=== PATIENT | female | born 1970 | race Caucasian/White ===

== ENCOUNTER 2025-04-25 22:10 | Observation (INO) | payer BC, SELFPAY ==
--- NOTE | ~2025-04-25 | CT_ITS ---
CT of the Abdomen and Pelvis: Indication: Abdominal pain Technique: 2.5 mm axial scans were obtained through the abdomen and pelvis following intravenous adm inistration of 100 cc of Omnipaque 350. Dose reduction technique was used on this scan by utilizing a utomated exposure control and iterative reconstruction technique. The dose-length product (DLP) was 7 31.30 mGy-cm. Findings: Scans through the lung bases are unremarkable. The liver, spleen, pancreas, gallbladder, adrenals and kidneys are within normal limits. No evidence of aortic aneurysm. No lymphadenopathy. Appendix is mildly dilated to 8-9 mm with mild periappendiceal stranding, compatible with early acute appendicitis. No abscess or free air. No bowel obstruction. Images through the pelvis were performed. Urinary bladder unremarkable. No pelvic mass seen. No ascit es. Impression: Findings compatible with early acute appendicitis, as detailed above. No abscess or free air. Reviewed, dictated and finalized at location . Impression: Findings compatible with early acute appendicitis, as detailed above. No absces s or free air.
[2025-04-25 22:26] VITALS: BP 145/77; PULSE 71; RESP 16; TEMP 36.7; O2SAT 99
[2025-04-26] VITALS (19 sets, daily range): BP systolic 103–131; BP diastolic 53–79; PULSE 59–97; RESP 14–22; TEMP 36.1–36.9; O2SAT 92–100; BMI 30.4
[2025-04-26 00:38] LABS: Add Urine Microscopic? YES; Appearance Urine Clear (Clear); Bacteria Urine None Seen /hpf; Bilirubin Urine Negative (Negative); Blood Urine Negative (Negative); Color Urine Yellow (Yellow); Glucose Urine UA Negative (Negative); Ketones Urine Negative (Negative); Leukocyte Esterase Ur Trace LEU/UL (Negative); Nitrate Urine Negative (Negative); Protein Urine Negative (Negative); RBC Urine 0-2 /hpf (0-2); Specific Grav Ur 1.022 (1.001-1.035); Squamous Epithelial Cell Urine None Seen /hpf (Few); Urobilinogen Urine 0.2 mg/dL (<2.0); WBC Urine 0-5 /hpf (0-3); pH Urine 5.5 (5.0-9.0)
--- NOTE | 2025-04-26 00:50 | ED_ITS ---
HPI - Abdominal Pain General Chief Complaint: Abdominal Pain <JANI Hi Last Filed: 04/26/25 03:02> Stated Complaint: vomiting, abd pain <JANI Hi Last Filed: 04/26/25 03:02> Time Seen by Provider: 04/26/25 00:18 <JANI Hi Last Filed: 04/26/25 03:02> History of Present Illness HPI narrative: 54-year-old female with reported history of hypertension presents to the emergency department for abdominal pain that started today at 2:00 p.m. with associated nausea and vomiting a few hours later. Patient states the pain is diffusely throughout her mid abdomen and describes it as a pressure sensation. She denies fever, chest pain or shortness of breath, diarrhea, dysuria or hematuria. Her last bowel movement was earlier today and normal. No prior abdominal surgeries. She is also reporting a lump to her right labia that she noticed 2-3 days ago. States she has been working out in her garage and is seeing several spiders and is concerned it may be a spider bite. Denies drainage. She is uncertain of her last tetanus vaccine. <JANI Hi Last Filed: 04/26/25 03:02> Related Data Allergies/Adverse Reactions: Allergies Allergy/AdvReac Type Severity Reaction Status Date / Time pcn Allergy Intermediate Hives Uncoded 04/25/25 22:28 <JANI Hi Last Filed: 04/26/25 03:02> Review of Systems 2 Review of Systems: All systems reviewed & are unremarkable except as noted in HPI and below <JANI Hi Last Filed: 04/26/25 03:02> Exam 2 Narrative: GENERAL: Well-appearing, well-nourished, and in no acute distress. HEAD: Normocephalic, atraumatic. EYES: EOMI. ENT: Nares clear, no rhinorrhea or epistaxis. Mucous membranes moist. NECK: Supple. CHEST: Clear to auscultation. No respiratory distress. HEART: Regular rate and rhythm. No murmur heard. Normal peripheral pulses. ABDOMEN: Quiet bowel sounds. Abdomen soft with tenderness to the right lower quadrant. No rebound or rigidity. No CVA tenderness. Approximately 3 cm area of induration to the right labia majora with overlying blanching erythema and warmth, tender to palpation, no areas of fluctuance, no spontaneous drainage. No crepitus EXTREMITIES: Normal range of motion. No edema. SKIN: Warm, dry, no rash. NEURO: No focal deficits. Alert and oriented x3 <Alaina Aquino PA-C - Last Filed: 04/26/25 03:02> Course Vital Signs Vital signs: Vital Signs Temperature 98.1 F 04/25/25 22:26 Pulse Rate 71 04/25/25 22:26 Respiratory Rate 16 04/25/25 22:26 Blood Pressure 145/77 H 04/25/25 22:26 Pulse Oximetry 99 04/25/25 22:26 Oxygen Delivery Room Air 04/25/25 22:26 Temperature 98.1 F 04/25/25 22:26 Pulse Rate 85 04/26/25 04:59 Respiratory Rate 15 04/26/25 04:59 Blood Pressure 109/72 04/26/25 04:59 Pulse Oximetry 99 04/26/25 04:59 Oxygen Delivery Room Air 04/25/25 22:26 <Alaina Aquino PA-C - Last Filed: 04/26/25 03:02> Vital Signs Temperature 98.1 F 04/25/25 22:26 Pulse Rate 71 04/25/25 22:26 Respiratory Rate 16 04/25/25 22:26 Blood Pressure 145/77 H 04/25/25 22:26 Pulse Oximetry 99 04/25/25 22:26 Oxygen Delivery Room Air 04/25/25 22:26 Temperature 98.1 F 04/25/25 22:26 Pulse Rate 85 04/26/25 04:59 Respiratory Rate 15 04/26/25 04:59 Blood Pressure 109/72 04/26/25 04:59 Pulse Oximetry 99 04/26/25 04:59 Oxygen Delivery Room Air 04/25/25 22:26 <Twin Dao MD - Last Filed: 04/26/25 06:18> MDM - Abdominal Pain MDM Narrative Medical decision making narrative: 54-year-old female with history of hypertension presents to the emergency department for abdominal pain, nausea vomiting that started this morning. Also reporting a lump to her right labia for the past 2-3 days she believes is a spider bite. Vital signs are stable. Patient is afebrile and nontoxic appearing. Exam is significant for tenderness to the right lower quadrant on palpation. No guarding, rebound or rigidity. Will obtain lab work, UA, CT abdomen pelvis and provide IV fluids, pain control and antiemetics. Patient's right labia has approximately 3 cm area of blanching erythema and warmth, tender over palpation with induration. There is no fluctuance. Bedside ultrasound shows no drainable abscess or fluid collection. Will see if the CT abdomen and pelvis shows any evidence of abscess. Plan to start the patient on antibiotics for cellulitis. Her Tdap was updated in the event that this was infected spider bite. Her lab work shows leukocytosis of 18. Her chemistries show hyperglycemia of 143 with normal bicarb and anion gap, otherwise unremarkable. UA with trace leuk esterase, no white blood cells or red blood cells, no UTI. Lipase is within normal limits. Patient was re-evaluated states her pain and nausea improved after morphine and Zofran, however still having mild persistent pain and nausea. Will provide Dilaudid and Reglan. Pending CT abdomen pelvis at time of sign-out to Dr. Dao. <Alaina Aquino PA-C - Last Filed: 04/26/25 03:02> 54-year-old female with history of hypertension presents to the emergency department for abdominal pain, nausea vomiting that started this morning. Also reporting a lump to her right labia for the past 2-3 days she believes is a spider bite. Vital signs are stable. Patient is afebrile and nontoxic appearing. Exam is significant for tenderness to the right lower quadrant on palpation. No guarding, rebound or rigidity. Will obtain lab work, UA, CT abdomen pelvis and provide IV fluids, pain control and antiemetics. Patient's right labia has approximately 3 cm area of blanching erythema and warmth, tender over palpation with induration. There is no fluctuance. Bedside ultrasound shows no drainable abscess or fluid collection. Will see if the CT abdomen and pelvis shows any evidence of abscess. Plan to start the patient on antibiotics for cellulitis. Her Tdap was updated in the event that this was infected spider bite. Her lab work shows leukocytosis of 18. Her chemistries show hyperglycemia of 143 with normal bicarb and anion gap, otherwise unremarkable. UA with trace leuk esterase, no white blood cells or red blood cells, no UTI. Lipase is within normal limits. Patient was re-evaluated states her pain and nausea improved after morphine and Zofran, however still having mild persistent pain and nausea. Will provide Dilaudid and Reglan. Pending CT abdomen pelvis at time of sign-out to Dr. Dao. -- CT scan did show acute appendicitis with no evidence of abscess or perforation. Patient is currently afebrile but does have a leukocytosis of 18. Patient had initially been started on Rocephin for cellulitis but was switched to Zosyn. Patient is NPO since approximately 5:00 p.m. last night. Patient does take medications for hypertension. Patient denies any cardiac history is not on any blood thinners. Patient reports he did have prior abdominal surgery to have some ovarian cysts removed. On re-examination patient does have right lower quadrant tenderness to palpation. <Twin Dao MD - Last Filed: 04/26/25 06:18> Differential Diagnosis Differential diagnosis: Likely abdominal pain, acute appendicitis and other <Twin Dao MD - Last Filed: 04/26/25 06:18> Lab Data Result diagrams: 04/26/25 01:07 04/26/25 01:07 <Alaina Aquino PA-C - Last Filed: 04/26/25 03:02> Labs: Lab Results 04/26/25 04/26/25 04/26/25 Range/Units 00:23 00:28 01:07 WBC 18.0 H (4.5-10.0) K/mm3 RBC 4.85 (4.2-5.4) M/mm3 Hgb 13.2 (12.0-15.0) g/dL Hct 41.0 (37.0-47.0) % MCV 84.5 (80-100) fl MCH 27.2 (26-34) pg MCHC 32.2 (32-36) g/dl RDW 15.0 H (11.5-14.5) % Plt Count 298 (150-375) k/mm3 MPV 9.2 (7.4-10.4) fl Immature Gran % (Auto) 0.3 (0-0.5) % Neut % (Auto) 92.9 H (45.5-73.1) % Lymph % (Auto) 3.2 L (18.3-44.2) % [place] % (Auto) 3.3 (2.6-8.5) % Eos % (Auto) 0.1 (0-4.4) % Baso % (Auto) 0.2 (0.2-1.2) % Lymph # (Auto) 0.58 L (0.9-3.2) K/mm3 [place] # (Auto) 0.6 (0.1-0.6) K/mm3 Eos # (Auto) 0.0 (0-0.3) K/mm3 Baso # (Auto) 0.0 (0.0-0.1) K/mm3 Abs Immat Gran (auto) 0.06 H (0.00-0.031) K/mm3 Absolute Neuts (auto) 16.7 H (1.3-6.7) K/mm3 Absolute Nucleated RBC 0.000 (0.0-0.012) K/mm3 Band Neutrophils % Not Reportable Nucleated RBC % 0.0 (0.0-0.2) % Platelet Estimate Adequate (Adequate) Stomatocytes 1+ Schistocytes None seen Sodium 136 L (137-145) mmol/L Potassium 4.4 (3.4-5.0) mmol/L Chloride 99 (98-107) mmol/L Carbon Dioxide 26 (22-30) mmol/L Anion Gap 11 (4-12) mmol/L BUN 21 H (7-17) mg/dL Creatinine 0.77 (0.7-1.0) mg/dL Estim Creat Clear Calc Not Reportable Estimated GFR > 60 (59 - ) Glucose 143 H (65-110) mg/dL Calcium 10.1 (8.4-10.2) mg/dL Total Bilirubin 0.5 (0.2-1.3) mg/dL AST 27 (14-36) U/L ALT 16 (6-35) U/L Alkaline Phosphatase 128 H (38-126) U/L Total Protein 8.1 (6.3-8.2) g/dL Albumin 4.7 (3.5-5.1) g/dL Lipase 57 (23-300) U/L Urine Color Yellow (Yellow) Urine Appearance Clear (Clear) Urine pH 5.5 (5.0-9.0) Ur Specific [place] 1.022 (1.001-1.035) Urine Protein Negative (Negative) mg/dL Urine Glucose (UA) Negative (Negative) mg/dL Urine Ketones Negative (Negative) mg/dL Ur Blood (Man) Negative (Negative) Urine Nitrate Negative (Negative) Urine Bilirubin Negative (Negative) Urine Urobilinogen 0.2 (<2.0) mg/dL Leukocyte Esterase Rfl Trace H (Negative) JEAN/UL Urine RBC 0-2 (0-2) /hpf Urine WBC 0-5 (0-3) /hpf Ur Squamous Epith Cells None seen (Few) /hpf Urine Bacteria None seen /hpf Urine Casts 3-5 POC Urine HCG, Qual Negative (Negative) <Alaina Aquino PA-C - Last Filed: 04/26/25 03:02> Lab Results 04/26/25 04/26/25 04/26/25 Range/Units 00:23 00:28 01:07 WBC 18.0 H (4.5-10.0) K/mm3 RBC 4.85 (4.2-5.4) M/mm3 Hgb 13.2 (12.0-15.0) g/dL Hct 41.0 (37.0-47.0) % MCV 84.5 (80-100) fl MCH 27.2 (26-34) pg MCHC 32.2 (32-36) g/dl RDW 15.0 H (11.5-14.5) % Plt Count 298 (150-375) k/mm3 MPV 9.2 (7.4-10.4) fl Immature Gran % (Auto) 0.3 (0-0.5) % Neut % (Auto) 92.9 H (45.5-73.1) % Lymph % (Auto) 3.2 L (18.3-44.2) % [place] % (Auto) 3.3 (2.6-8.5) % Eos % (Auto) 0.1 (0-4.4) % Baso % (Auto) 0.2 (0.2-1.2) % Lymph # (Auto) 0.58 L (0.9-3.2) K/mm3 [place] # (Auto) 0.6 (0.1-0.6) K/mm3 Eos # (Auto) 0.0 (0-0.3) K/mm3 Baso # (Auto) 0.0 (0.0-0.1) K/mm3 Abs Immat Gran (auto) 0.06 H (0.00-0.031) K/mm3 Absolute Neuts (auto) 16.7 H (1.3-6.7) K/mm3 Absolute Nucleated RBC 0.000 (0.0-0.012) K/mm3 Band Neutrophils % Not Reportable Nucleated RBC % 0.0 (0.0-0.2) % Platelet Estimate Adequate (Adequate) Stomatocytes 1+ Schistocytes None seen Sodium 136 L (137-145) mmol/L Potassium 4.4 (3.4-5.0) mmol/L Chloride 99 (98-107) mmol/L Carbon Dioxide 26 (22-30) mmol/L Anion Gap 11 (4-12) mmol/L BUN 21 H (7-17) mg/dL Creatinine 0.77 (0.7-1.0) mg/dL Estim Creat Clear Calc Not Reportable Estimated GFR > 60 (59 - ) Glucose 143 H (65-110) mg/dL Calcium 10.1 (8.4-10.2) mg/dL Total Bilirubin 0.5 (0.2-1.3) mg/dL AST 27 (14-36) U/L ALT 16 (6-35) U/L Alkaline Phosphatase 128 H (38-126) U/L Total Protein 8.1 (6.3-8.2) g/dL Albumin 4.7 (3.5-5.1) g/dL Lipase 57 (23-300) U/L Urine Color Yellow (Yellow) Urine Appearance Clear (Clear) Urine pH 5.5 (5.0-9.0) Ur Specific [place] 1.022 (1.001-1.035) Urine Protein Negative (Negative) mg/dL Urine Glucose (UA) Negative (Negative) mg/dL Urine Ketones Negative (Negative) mg/dL Ur Blood (Man) Negative (Negative) Urine Nitrate Negative (Negative) Urine Bilirubin Negative (Negative) Urine Urobilinogen 0.2 (<2.0) mg/dL Leukocyte Esterase Rfl Trace H (Negative) JEAN/UL Urine RBC 0-2 (0-2) /hpf Urine WBC 0-5 (0-3) /hpf Ur Squamous Epith Cells None seen (Few) /hpf Urine Bacteria None seen /hpf Urine Casts 3-5 POC Urine HCG, Qual Negative (Negative) <Twin Dao MD - Last Filed: 04/26/25 06:18> Imaging Data Radiologist's impression: ITS Impressions Abdomen/Pelvis CT 04/26/25 05:27 Impression: Findings compatible with early acute appendicitis, as detailed above. No abscess or free air. <Alaina Aquino PA-C - Last Filed: 04/26/25 03:02> ITS Impressions Abdomen/Pelvis CT 04/26/25 05:27 Impression: Findings compatible with early acute appendicitis, as detailed above. No abscess or free air. <Twin Dao MD - Last Filed: 04/26/25 06:18> Discharge Plan Discharge Clinical Impression: Cellulitis of labia, Appendicitis <Alaina Aquino PA-C - Last Filed: 04/26/25 03:02> Patient Disposition: Still a Patient <Alaina Aquino PA-C - Last Filed: 04/26/25 03:02> Condition: Stable <Alaina Aquino PA-C - Last Filed: 04/26/25 03:02> Instructions: Antibiotic Form <Alaina Aquino PA-C - Last Filed: 04/26/25 03:02> Patient Language: Romansh <Alaina Aquino PA-C - Last Filed: 04/26/25 03:02> Follow-up/Referrals: Anastacio,Catina Mccrary MD [Primary Care Provider] - <Alaina Aquino PA-C - Last Filed: 04/26/25 03:02>
[2025-04-26 00:51] LABS: BEDSIDEPREGUCG Negative (Negative)
[2025-04-26 01:13] LABS: Basophils Percent Auto 0.2 % (0.2-1.2); Eosinophils Percent Auto 0.1 % (0-4.4); Hemoglobin 13.2 g/dL (12.0-15.0); Immature Granulocyte Absolute 0.06 K/mm3 (0.00-0.031); Immature Granulocyte Percent A 0.3 % (0-0.5); Lymphocytes Absolute Auto 0.58 K/mm3 (0.9-3.2); Lymphocytes Percent Auto 3.2 % (18.3-44.2); Mean Corpuscular HGB Conc 32.2 g/dl (32-36); Mean Corpuscular Hemoglobin 27.2 pg (26-34); Mean Corpuscular Volume 84.5 fl (80-100); Mean Platelet Volume 9.2 fl (7.4-10.4); Monocytes Absolute Auto 0.6 K/mm3 (0.1-0.6); Monocytes Percent Auto 3.3 % (2.6-8.5); Neutrophils Absolute Auto 16.7 K/mm3 (1.3-6.7); Neutrophils Percent Auto 92.9 % (45.5-73.1); Platelet Count Result 298 k/mm3 (150-375); Red Blood Count 4.85 M/mm3 (4.2-5.4)
[2025-04-26] MEDS: FAMOTIDINE 20 MG/2 ML VIAL IV PUSH (01:15)
[2025-04-26] MEDS: ONDANSETRON INJ 4 MG/2 ML VIAL IV PUSH (01:15)
[2025-04-26] MEDS: SODIUM CHLORIDE 0.9% IV 1,000 ML 999 ML IV CONT (01:15)
[2025-04-26] MEDS: MORPHINE SULFATE (*CRX) 4 MG/ML INJ IV PUSH (01:15)
[2025-04-26 01:25] LABS: Alanine Aminotransferase 16 U/L (6-35); Albumin Level 4.7 g/dL (3.5-5.1); Alkaline Phosphatase 128 U/L (38-126); Anion Gap 11 mmol/L (4-12); Aspartate Amino Transferase 27 U/L (14-36); Bilirubin,Total 0.5 mg/dL (0.2-1.3); Blood Urea Nitrogen 21 mg/dL (7-17); Calcium 10.1 mg/dL (8.4-10.2); Carbon Dioxide 26 mmol/L (22-30); Chloride 99 mmol/L (98-107); Estimated Glomerular Filt Rate > 60; Glucose 143 mg/dL (65-110); Lipase 57 U/L (23-300); Potassium 4.4 mmol/L (3.4-5.0); Sodium 136 mmol/L (137-145); Total Protein 8.1 g/dL (6.3-8.2)
[2025-04-26 01:37] LABS: Platelet Estimate Adequate (Adequate); Schistocytes None Seen; Stomatocytes 1+
[2025-04-26] MEDS: METOCLOPRAMIDE HCL INJ 10 MG/2 ML VIAL IV PUSH (02:35)
[2025-04-26] MEDS: HYDROmorphone HCL INJ (*CRX) 2 MG/ML VIAL 0.5 MG IV PUSH (02:36)
[2025-04-26] MEDS: TETANUS,DIPHTHERIA,AC PERTUSSIS ADULT (0.5 ML) BOOSTRIX IM (02:51)
[2025-04-26] MEDS: PIPERACILLN/TAZ 3.375GM/NS50ML 3.375 GM/50 ML BAG IVPB (05:37)
[2025-04-26] MEDS: LACTATED RINGERS 1,000 ML 999 ML IV CONT (05:37)
--- NOTE | 2025-04-26 08:05 | PC.NURSE ---
This patient, Marisol Guzman, was admitted to [facility] Surg Room 324-01. Patient/family oriented to hospital policies and general routines including ID bracelet, bed and alarms, visiting hours, pain management, procedures, bathroom and other care routines, personal items, smoking policy, room service/diet, and visiting hours. Information on how to activate the Rapid Response Team has been discussed. Patient/Family are encouraged to report perceived risks to care and to ask questions if they do not understand what they are told or what they should do.
[2025-04-26] MEDS: LACTATED RINGERS 1,000 ML 125 ML IV CONT (08:16)
--- NOTE | 2025-04-26 08:54 | PM.IMHP ---
H&P: HPI History of Present Illness Date/Time: 04/26/25 08:54 Chief Complaint: Abdominal pain Narrative: 54yo female with HTN who presents to the ED with complaints of abdominal pain. Patient was feeling well until yesterday afternoon when she developed ?achy? and tight? mid abdominal pain. This is associated with anorexia. Few hours later she developed nausea and vomiting. She tried Pepto-Bismol without benefit. No diarrhea. No fever or chills. Last bowel movement yesterday was normal. No melena, hematochezia or hematemesis. No recent travel. She has never had this before. No dysuria or hematuria. No vaginal discharge or vaginal bleeding. No chest pain, palpitations, shortness of breath or cough. She has noted a right labial erythematous nodule about 2-3 days ago. She has similar finding behind her left knee about 3 weeks ago treated with [id number] antipyretic spray. No drainage or antibiotic use; this resolved on its own. The labial lesion did increase in size initially but has not over the past day or so. There has been no drainage from the labial lesion. She does not shave this area. Her does not have similar lesions. Because of the worsening abdominal pain, patient presented to the emergency room. In the ED, patient was hemodynamically stable. She was not tachycardic or febrile. White count was 18K with a left shift. Hemoglobin and platelet count were normal. CMP was normal except for a sodium 136, BUN 21 and glucose of 143. Urinalysis was essentially negative with exception of trace leukocyte esterase. test was negative. CT abdomen and pelvis with contrast shows findings compatible with early acute appendicitis but no abscess or free air. Bedside ultrasound in the ED of the right labial lesion showed no drainable abscess or fluid collection. She was treated with Zofran, Pepcid, morphine, Reglan, Dilaudid and IV fluids. She was given DTAP vaccine. She received a dose of Rocephin and then Zosyn as well. Patient does have an allergy to penicillin that caused hives when she was a child but tolerated the Zosyn infusion. She was admitted for further care. No CP or SOB recently with activity. No flatus or BM since admission. Review of Systems Review of Systems: All systems reviewed & are unremarkable except as noted in HPI and below PMFSH Past Medical History Medical History (Updated 04/26/25 @ 09:09 by Saqib Casiano MD) Essential hypertension Surgical History Surgical History (Updated 04/26/25 @ 09:09 by aSqib Casiano MD) H/O dilation and curettage Family History Family History Mother Hypertension Breast cancer Father Hypertension Sibling Hypertension Social History Social History (Updated 04/26/25 @ 09:09 by Saqib Casiano MD) Social History: No alcohol or drug use. Lifelong nonsmoker. Lives with her . They do have a cat. 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 Code status -full Surrogate decision maker - Smoking status: Never smoker Alcohol intake: never Substance use: never Do You Feel Safe in your Home?: Yes Lack of Transportation: No Lack of Food: Never True Current Housing: I Have Housing Concerned About Future Housing: Decline to Answer Difficulty Paying Gas/Electric Bills: Decline to Answer Difficulty Paying for Meds: Decline to Answer Currently Unemployed: Decline to Answer Education: Bachelor's Degree Difficulty w/ Childcare or Family Care: Decline to Answer Spiritual care concerns: No Meds Home Medications and Allergies Home Medications ?Medication ?Instructions ?Recorded ?Confirmed ?Type cetirizine 10 mg tablet (All Day 10 mg PO DAILY 04/26/25 04/26/25 History Allergy (cetirizine)) lisinopril 10 1 tablet PO DAILY 04/26/25 04/26/25 History mg-hydrochlorothiazide 12.5 mg tablet rhubarb root extract 4 mg tablet 4 mg PO DAILY 04/26/25 04/26/25 History ([place] Complete Menopause Relief) Allergies Allergy/AdvReac Type Severity Reaction Status Date / Time Penicillins AdvReac Hives Verified 04/26/25 08:51 Vital Signs Vital Signs - 24 hr 04/25/25 22:26 04/26/25 00:29 04/26/25 02:49 Temperature 98.1 F Pulse Rate 71 59 L 97 Respiratory Rate 16 16 16 Blood Pressure 145/77 H 131/74 114/67 Pulse Oximetry 99 99 97 Oxygen Delivery Room Air 04/26/25 03:30 04/26/25 04:59 04/26/25 07:22 Temperature Pulse Rate 83 85 67 Respiratory Rate 15 15 16 Blood Pressure 106/76 109/72 116/74 Pulse Oximetry 95 99 98 Oxygen Delivery 04/26/25 08:25 Temperature 96.9 F L Pulse Rate 95 Respiratory Rate 16 Blood Pressure 116/68 Pulse Oximetry 97 Oxygen Delivery Exam Narrative: AF 96.9 116/68 95 16 97%ra Gen - well appearing female in no acute respiratory distress who is nontoxic-appearing lying semi recumbent in bed HEENT - normocephalic. Atraumatic. Pupils equal round and reactive. Extraocular motions intact. Sclera clear and anicteric. Nares patent. Oropharynx was clear. No oral lesions. Moist mucous membranes. Tongue was midline. Palate mckenzie symmetrically. No facial asymmetry. Neck - neck was supple. No dominant adenopathy, thyromegaly or masses. 2+ carotid upstrokes without bruits. Chest - lungs are clear to auscultation bilaterally. No wheezes or crackles. Breast exam was deferred. CV - heart was regular rate and rhythm. S1-S2. No murmurs gallops or rubs. Abd - abdomen was soft. Nondistended. Hypoactive bowel sounds. No organomegaly or masses. Tenderness RLQ without guarding. Negative psoas sign. Ext - no clubbing, cyanosis or edema. 2+ DP pulses bilaterally. Neuro - patient is alert and oriented x4. Strength is 5/5 in both upper and lower extremities. Cranial nerves 2-12 are intact. Speech is clear. Psych - normal mood and affect. Patient is pleasant and cooperative. Skin - warm and dry. Small, indurated area right outer labia near the leg fold with mild pink surrounding erythema and minimally tender. H&P: Results Labs Labs: Short CBC 04/26/25 Range/Units 01:07 WBC 18.0 H (4.5-10.0) K/mm3 Hgb 13.2 (12.0-15.0) g/dL Hct 41.0 (37.0-47.0) % Plt Count 298 (150-375) k/mm3 [facility] 04/26/25 01:07 Sodium 136 L Potassium 4.4 Chloride 99 Carbon Dioxide 26 BUN 21 H Creatinine 0.77 Glucose 143 H Calcium 10.1 Liver Function 04/26/25 Range/Units 01:07 Total Bilirubin 0.5 (0.2-1.3) mg/dL AST 27 (14-36) U/L ALT 16 (6-35) U/L Alkaline Phosphatase 128 H (38-126) U/L Albumin 4.7 (3.5-5.1) g/dL Urine 04/26/25 Range/Units 00:23 Urine Color Yellow (Yellow) Urine Appearance Clear (Clear) Urine pH 5.5 (5.0-9.0) Ur Specific [place] 1.022 (1.001-1.035) Urine Protein Negative (Negative) mg/dL Urine Glucose (UA) Negative (Negative) mg/dL Assessment and Plan Assessment and plan (1) Appendicitis: Code(s): K37 - Unspecified appendicitis Status: Acute Assessment and Plan: Patient presents with abdominal pain and found to have early appendicitis. She received Rocephin then Zosyn in ED. Her symptoms are much improved. General surgery consulted. Spoke with her briefly about operative vs non-operative management. Resume abx as Rocephin and Flagyl. Monitor for reactions to cephalosporin. General surgery consulted. NPO. Continue IVF. (2) Cellulitis of labia: Code(s): N76.2 - Acute vulvitis Status: Acute Assessment and Plan: Probably related to ingrown hair or bug bite along the underwear that has developed into a mild cellulitis. No fluid collection or need for I&D at this time. Continue abx as above. (3) Hyperglycemia: Code(s): R73.9 - Hyperglycemia, unspecified Status: Acute Assessment and Plan: Glucose 143 on admission. Probably stress response from the infections. Will check A1c and place on sliding scale to monitor glucose levels. Spoke with her about the benefits of starting an exercise program once she has recovered. (4) Essential hypertension: Code(s): I10 - Essential (primary) hypertension Status: Acute Assessment and Plan: BP well controlled probably related to the narcotics and bedrest. Will hold on resuming HCTZ but will resume lisinopril. Monitor BP closely. Plan DVT prophylaxis - SCDs Code status - Full
--- NOTE | 2025-04-26 09:18 | P.CONGS_ITS ---
Assessment and Plan Assessment and plan (1) Essential hypertension: Code(s): I10 - Essential (primary) hypertension Status: Acute (2) Appendicitis: Code(s): K37 - Unspecified appendicitis Status: Acute Assessment and Plan: Patient presented to the ED last night with abdominal pain that started around 4:30 in the afternoon with associated nausea and vomiting. CT demonstrated evidence of acute appendicitis without perforation or abscess. WBC 18. Surgery is scheduled for 1200 today. Procedure was discussed with patient at bedside, as well as risks and benefits of operative vs non operative management. Plan Discussed patient's case and plan of care with Dr. Hargrove. History of Present Illness Consult details Consult date: 04/26/25 Reason for consult: other (Acute appendicitis) Requesting physician: Twin Dao MD Narrative: Patient is a 54-year-old female with history of hypertension we have been asked to see in surgical consultation for acute appendicitis. Patient states that she 1st noted diffuse abdominal pain yesterday around 4- 4:30. She was brought dinner, but was unable to eat more than a bite before she started experiencing nausea and vomiting around 6:00 p.m. patient states that she had around 5-6 episodes of emesis. Pain began to localize to her right lower quadrant with some radiation to her back. She tried taking Pepto-Bismol, but was not able to keep this down. She called the nurse hotline on her insurance card and was instructed to go to an urgent care or emergency department. In the ED, her WBC count was 18.0. CT demonstrated early acute appendicitis with no abscess or free air. Patient's last bowel movement was yesterday afternoon. She last ate a full meal around noon yesterday. No history of abdominal surgeries. Pain has been managed with Dilaudid. [facility] Past Medical History Medical History (Updated 04/26/25 @ 09:09 by Saqib Casinao MD) Essential hypertension Surgical History Surgical History H/O dilation and curettage Family History Family History Mother Hypertension Breast cancer Father Hypertension Sibling Hypertension Social History Social History Social History: No alcohol or drug use. Lifelong nonsmoker. Lives with her . They do have a cat. 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 Code status -full Surrogate decision maker - Smoking status: Never smoker Alcohol intake: never Substance use: never Do You Feel Safe in your Home?: Yes Lack of Transportation: No Lack of Food: Never True Current Housing: I Have Housing Concerned About Future Housing: Decline to Answer Difficulty Paying Gas/Electric Bills: Decline to Answer Difficulty Paying for Meds: Decline to Answer Currently Unemployed: Decline to Answer Education: Bachelor's Degree Difficulty w/ Childcare or Family Care: Decline to Answer Spiritual care concerns: No Meds Home Medications and Allergies Home Medications ?Medication ?Instructions ?Recorded ?Confirmed ?Type cetirizine 10 mg tablet (All Day 10 mg PO DAILY 04/26/25 04/26/25 History Allergy (cetirizine)) lisinopril 10 1 tablet PO DAILY 04/26/25 04/26/25 History mg-hydrochlorothiazide 12.5 mg tablet rhubarb root extract 4 mg tablet 4 mg PO DAILY 04/26/25 04/26/25 History (Estroven Complete Menopause Relief) Allergies Allergy/AdvReac Type Severity Reaction Status Date / Time Penicillins AdvReac Hives Verified 04/26/25 08:51 Vital Signs Vital Signs - 24 hr 04/25/25 22:26 04/26/25 00:29 04/26/25 02:49 Temperature 98.1 F Pulse Rate 71 59 L 97 Respiratory Rate 16 16 16 Blood Pressure 145/77 H 131/74 114/67 Pulse Oximetry 99 99 97 Oxygen Delivery Room Air 04/26/25 03:30 04/26/25 04:59 04/26/25 07:22 Temperature Pulse Rate 83 85 67 Respiratory Rate 15 15 16 Blood Pressure 106/76 109/72 116/74 Pulse Oximetry 95 99 98 Oxygen Delivery 04/26/25 08:25 Temperature 96.9 F L Pulse Rate 95 Respiratory Rate 16 Blood Pressure 116/68 Pulse Oximetry 97 Oxygen Delivery Exam 2 Const: General: comfortable and no acute distress Eyes: General: appearance normal, both eyes and all related structures Neck: Neck: supple Resp: Effort & Inspection: normal respiratory effort Cardio: Rate: regular rate GI: GI Palp: Yes Soft to palpation, Yes Tenderness to palpation present (GI) (Mild tenderness to right lower quadrant) and No Guarding due to palpation present (GI) : General: Yes bladder normal to palpation Skin: General skin exam: normal color and no rashes or lesions noted Neuro: Speech: normal speech Sensory Exam: normal sensation Extrem: General: normal to inspection Psych: Mental Status: mental status grossly normal Results Labs 04/26/25 01:07 04/26/25 01:07 Labs: Abnormal lab results 04/26/25 04/26/25 Range/Units 00:23 01:07 WBC 18.0 H (4.5-10.0) K/mm3 RDW 15.0 H (11.5-14.5) % Neut % (Auto) 92.9 H (45.5-73.1) % Lymph % (Auto) 3.2 L (18.3-44.2) % Lymph # (Auto) 0.58 L (0.9-3.2) K/mm3 Abs Immat Gran (auto) 0.06 H (0.00-0.031) K/mm3 Absolute Neuts (auto) 16.7 H (1.3-6.7) K/mm3 Sodium 136 L (137-145) mmol/L BUN 21 H (7-17) mg/dL Glucose 143 H (65-110) mg/dL Alkaline Phosphatase 128 H (38-126) U/L Leukocyte Esterase Rfl Trace H (Negative) JEAN/UL Diabetes panel 04/26/25 Range/Units 01:07 Sodium 136 L (137-145) mmol/L Potassium 4.4 (3.4-5.0) mmol/L Chloride 99 (98-107) mmol/L Carbon Dioxide 26 (22-30) mmol/L BUN 21 H (7-17) mg/dL Creatinine 0.77 (0.7-1.0) mg/dL Glucose 143 H (65-110) mg/dL Calcium 10.1 (8.4-10.2) mg/dL AST 27 (14-36) U/L ALT 16 (6-35) U/L Alkaline Phosphatase 128 H (38-126) U/L Total Protein 8.1 (6.3-8.2) g/dL Albumin 4.7 (3.5-5.1) g/dL Calcium panel 04/26/25 Range/Units 01:07 Calcium 10.1 (8.4-10.2) mg/dL Albumin 4.7 (3.5-5.1) g/dL Pituitary panel 04/26/25 Range/Units 01:07 Sodium 136 L (137-145) mmol/L Potassium 4.4 (3.4-5.0) mmol/L Chloride 99 (98-107) mmol/L Carbon Dioxide 26 (22-30) mmol/L BUN 21 H (7-17) mg/dL Creatinine 0.77 (0.7-1.0) mg/dL Glucose 143 H (65-110) mg/dL Calcium 10.1 (8.4-10.2) mg/dL Adrenal panel 04/26/25 Range/Units 01:07 Sodium 136 L (137-145) mmol/L Potassium 4.4 (3.4-5.0) mmol/L Chloride 99 (98-107) mmol/L Carbon Dioxide 26 (22-30) mmol/L BUN 21 H (7-17) mg/dL Creatinine 0.77 (0.7-1.0) mg/dL Glucose 143 H (65-110) mg/dL Calcium 10.1 (8.4-10.2) mg/dL Total Bilirubin 0.5 (0.2-1.3) mg/dL AST 27 (14-36) U/L ALT 16 (6-35) U/L Alkaline Phosphatase 128 H (38-126) U/L Total Protein 8.1 (6.3-8.2) g/dL Albumin 4.7 (3.5-5.1) g/dL All other labs normal. Imaging Abdomen CT scan report/results: report reviewed
[2025-04-26 10:51] LABS: INR 1.1; Prothrombin Time 13.7 Seconds (11.1-14.7)
[2025-04-26 10:52] LABS: Partial Thromboplastin Time 29.4 Seconds (22.3-36.8)
--- NOTE | 2025-04-26 11:01 | WPDHPUPDATE1 ---
History and Physical Update Update Date/Time: 04/26/25 11:01 History and Physical has been reviewed, including an updated exam of the patient. There are NO changes in the patient's condition. Risks, benefits, and alternatives have been discussed and questions answered. Patient agrees to proceed with procedure.
[2025-04-26] MEDS: metroNIDAZOLE 500 MG/ISO 100ML 500 MG/100 ML BAG 100 MG IVPB ×2 (11:07→17:38)
[2025-04-26] MEDS: LACTATED RINGERS 1,000 ML 30 ML IV CONT (11:15)
[2025-04-26] MEDS: KETOROLAC 15 MG/ML VIAL (*BKC) IV PUSH ×2 (11:15→12:42)
[2025-04-26] MEDS: ACETAMINOPHEN 500 MG TABLET 1000 MG PO (11:15)
--- NOTE | 2025-04-26 11:45 | WPDANESEPPF ---
Anes - Initial Pre Proc Eval Procedure: Operation Date: 04/26/25 12:00 Proposed Procedures p Laparoscopic Appendectomy - Dago Hargrove MD Date/Time: 04/26/25 11:45 Surgeon: Ted Brown MD Pre Op Diagnosis: Acute Appendicitis/Labial Cellulitis Patient Data Age: 54 Gender: F Height: 1.7 m Weight: 88 kg Last Vital Signs Temp 96.9 F L 04/26/25 08:25 Pulse 95 04/26/25 08:25 Resp 16 04/26/25 08:25 BP 116/68 04/26/25 08:25 Pulse Ox 97 04/26/25 08:25 O2 Del Method Room Air 04/26/25 08:20 Allergies Allergy/AdvReac Type Severity Reaction Status Date / Time Penicillins AdvReac Hives Verified 04/26/25 08:51 Home Medications ?Medication ?Instructions ?Recorded ?Confirmed ?Type cetirizine 10 mg tablet (All Day 10 mg PO DAILY 04/26/25 04/26/25 History Allergy (cetirizine)) lisinopril 10 1 tablet PO DAILY 04/26/25 04/26/25 History mg-hydrochlorothiazide 12.5 mg tablet rhubarb root extract 4 mg tablet 4 mg PO DAILY 04/26/25 04/26/25 History (Estroven Complete Menopause Relief) Laboratory Tests 04/26/25 04/26/25 04/26/25 00:23 00:28 01:07 WBC 18.0 H K/mm3 (4.5-10.0) RBC 4.85 M/mm3 (4.2-5.4) Hgb 13.2 g/dL (12.0-15.0) Hct 41.0 % (37.0-47.0) MCV 84.5 fl (80-100) MCH 27.2 pg (26-34) MCHC 32.2 g/dl (32-36) RDW 15.0 H % (11.5-14.5) Plt Count 298 k/mm3 (150-375) MPV 9.2 fl (7.4-10.4) Immature Gran % (Auto) 0.3 % (0-0.5) Neut % (Auto) 92.9 H % (45.5-73.1) Lymph % (Auto) 3.2 L % (18.3-44.2) [place] % (Auto) 3.3 % (2.6-8.5) Eos % (Auto) 0.1 % (0-4.4) Baso % (Auto) 0.2 % (0.2-1.2) Lymph # (Auto) 0.58 L K/mm3 (0.9-3.2) [place] # (Auto) 0.6 K/mm3 (0.1-0.6) Eos # (Auto) 0.0 K/mm3 (0-0.3) Baso # (Auto) 0.0 K/mm3 (0.0-0.1) Abs Immat Gran (auto) 0.06 H K/mm3 (0.00-0.031) Absolute Neuts (auto) 16.7 H K/mm3 (1.3-6.7) Absolute Nucleated RBC 0.000 K/mm3 (0.0-0.012) Band Neutrophils % Not Reportable Nucleated RBC % 0.0 % (0.0-0.2) Platelet Estimate Adequate (Adequate) Stomatocytes 1+ Schistocytes None seen PT INR APTT Sodium 136 L mmol/L (137-145) Potassium 4.4 mmol/L (3.4-5.0) Chloride 99 mmol/L (98-107) Carbon Dioxide 26 mmol/L (22-30) Anion Gap 11 mmol/L (4-12) BUN 21 H mg/dL (7-17) Creatinine 0.77 mg/dL (0.7-1.0) Estim Creat Clear Calc Not Reportable Estimated GFR > 60 (59 - ) Glucose 143 H mg/dL (65-110) Calcium 10.1 mg/dL (8.4-10.2) Total Bilirubin 0.5 mg/dL (0.2-1.3) AST 27 U/L (14-36) ALT 16 U/L (6-35) Alkaline Phosphatase 128 H U/L (38-126) Total Protein 8.1 g/dL (6.3-8.2) Albumin 4.7 g/dL (3.5-5.1) Lipase 57 U/L (23-300) Urine Color Yellow (Yellow) Urine Appearance Clear (Clear) Urine pH 5.5 (5.0-9.0) Ur Specific [place] 1.022 (1.001-1.035) Urine Protein Negative mg/dL (Negative) Urine Glucose (UA) Negative mg/dL (Negative) Urine Ketones Negative mg/dL (Negative) Ur Blood (Man) Negative (Negative) Urine Nitrate Negative (Negative) Urine Bilirubin Negative (Negative) Urine Urobilinogen 0.2 mg/dL (<2.0) Leukocyte Esterase Rfl Trace H JEAN/UL (Negative) Urine RBC 0-2 /hpf (0-2) Urine WBC 0-5 /hpf (0-3) Ur Squamous Epith Cells None seen /hpf (Few) Urine Bacteria None seen /hpf Urine Casts 3-5 POC Urine HCG, Qual Negative (Negative) Blood Type Antibody Screen 04/26/25 10:24 WBC RBC Hgb Hct MCV MCH MCHC RDW Plt Count MPV Immature Gran % (Auto) Neut % (Auto) Lymph % (Auto) [place] % (Auto) Eos % (Auto) Baso % (Auto) Lymph # (Auto) [place] # (Auto) Eos # (Auto) Baso # (Auto) Abs Immat Gran (auto) Absolute Neuts (auto) Absolute Nucleated RBC Band Neutrophils % Nucleated RBC % Platelet Estimate Stomatocytes Schistocytes PT 13.7 Seconds (11.1-14.7) INR 1.1 APTT 29.4 Seconds (22.3-36.8) Sodium Potassium Chloride Carbon Dioxide Anion Gap BUN Creatinine Estim Creat Clear Calc Estimated GFR Glucose Calcium Total Bilirubin AST ALT Alkaline Phosphatase Total Protein Albumin Lipase Urine Color Urine Appearance Urine pH Ur Specific [place] Urine Protein Urine Glucose (UA) Urine Ketones Ur Blood (Man) Urine Nitrate Urine Bilirubin Urine Urobilinogen Leukocyte Esterase Rfl Urine RBC Urine WBC Ur Squamous Epith Cells Urine Bacteria Urine Casts POC Urine HCG, Qual Blood Type O Positive Antibody Screen Negative Patient hx anesthesia problems: none Family hx anesthesia problems: none Results Review: All pre-operative results and documents have been reviewed as part of the pre-operative evaluation. [facility] Past Medical History Medical History Essential hypertension Surgical History Surgical History H/O dilation and curettage Family History Family History Mother Hypertension Breast cancer Father Hypertension Sibling Hypertension Social History Social History Social History: No alcohol or drug use. Lifelong nonsmoker. Lives with her . They do have a cat. 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 Code status -full Surrogate decision maker - Smoking status: Never smoker Alcohol intake: never Substance use: never Do You Feel Safe in your Home?: Yes Lack of Transportation: No Lack of Food: Never True Current Housing: I Have Housing Concerned About Future Housing: Decline to Answer Difficulty Paying Gas/Electric Bills: Decline to Answer Difficulty Paying for Meds: Decline to Answer Currently Unemployed: Decline to Answer Education: Bachelor's Degree Difficulty w/ Childcare or Family Care: Decline to Answer Spiritual care concerns: No Anes - Eval Final PreProcedure Day of Procedure 04/26/25 11:45 Patient weight: overweight Lungs: normal air movement Airway: Mallampati scale class II Neurological: alert and oriented Last oral intake: >/= 8 hours ASA classification: II Emergent: no Anesthetic plan: proceed Anesthesia type and monitoring: general ETT and standard monitoring Results Review: All pre-operative results and documents have been reviewed as part of the pre-operative evaluation. HTN. Informed Consent: The patient's anesthetic plan and its attendant risks and benefits were discussed with the patient/family/POA. Questions were solicited and answers provided to the satisfaction of the patient/family/POA.
[2025-04-26] MEDS: cefTRIAXone 2 GM/NS 100 ML 2 GM/100 ML BAG IVPB (12:21)
[2025-04-26] MEDS: LIDO 1%/EPINEPHRINE 1:100,000 50 ML VIAL 20 ML INFILTRATE (12:30)
[2025-04-26] MEDS: BUPivacaine HCL 0.5% 10 ML AMP 20 ML INFILTRATE (12:36)
--- NOTE | 2025-04-26 12:43 | S_PTH ---
PATIENT: Marisol Guzman LOC: [id number] U#:[id number] AGE/SX: 54/F ROOM: 324 RE04/26/[address]: Vincent Ackerman MD : 1970 BED: 01 DIS: 04/27/2025 SPEC #: [id number] RECD: 04/27/25 08:25 STATUS: DAHIANA MOLINA #: [id number] ABDULLAHI: 04/26/25 12:[address]: Dago Hargrove DEPT: [facility] Surgical RECD BY: Aide Clarke ENTERED: 04/27/25 08:25 SP TYPE: Surgical OTHR DR: Catina Chaves, MD Ted Brown MD Tissues: A - Appendix Procedures: Hematoxylin and Eosin Stain Gross and Microscopic Level 3
--- NOTE | 2025-04-26 13:40 | W.PM.PROC2 ---
Procedure Note - Detailed Date of Procedure 04/26/25 Pre-op Diagnosis Acute Appendicitis Post-op Diagnosis Same Procedure Performed Laparoscopic appendectomy Surgeon Dago Hargrove MD Director Of Instructional Technology Clayton MACIEL Anesthesia General Indications patient is a 64-year-old female presents to the emergency room last evening complaining of some generalized abdominal pain over the past several hours which eventually seemed to localize the right lower quadrant abdomen. She had a leukocytosis of 18,[address] scan of the abdomen and pelvis showed a dilated and inflamed appendix without evidence of perforation or periappendiceal abscess. She presents now for an emergent laparoscopic appendectomy. Findings The appendix was acutely inflamed and dilated. There was a small amount of purulent fluid around the appendix but no organized abscess. There is no gangrene or perforation of the appendix. The base of the appendix was viable with minimal inflammation. Description of Procedure After full consent was obtained the patient is brought to the operating room which is was the supine position and general endotracheal anesthesia was administered. The abdomen was then prepped and draped usual sterile fashion. Time-out was then performed correctly identify the patient as well as procedure to be performed. She was already on scheduled IV antibiotics. Under the abdomen a left upper quadrant was a 5 mm Optiview port. Once inside the abdomen I insufflated and a pneumoperitoneum of 15 mmHg CO2. There were no adhesions to obscure the view of the right lower quad the abdomen with the pelvis. The bladder was moderately filled the eye was able to place a 5 mm suprapubic trocar port above the visualized bladder. I then placed a 12 mm periumbilical trocar port and a 5 mm right lower quadrant trocar port all under direct visualization. The working through these ports utilize laparoscopic instruments I was able identify the appendix in the right lower quadrant. It was a laparoscopic grasper and elevated to reveal the base of the appendix which was viable with only minimal inflammation. There is no as a perforation or gangrene of the appendix. There was a small amount of purulent fluid around the appendix but no organized abscess. After suction of the purulent fluid I then made a defect through the mesoappendix at the base of the appendix utilizing a [place] dissector. I then used a laparoscopic 45 mm Endo-YESIKA stapler to divide the appendix flush with the cecum. A vascular reload to the endo YESIKA stapler was then used to divide the mesoappendix. The appendix was then placed into an Endo-Catch bag and brought out through the periumbilical trocar port site. It was passed off the table and sent to pathology for examination. I examined the staple lines on the mesoappendix and the cecum. They were hemostatic. I then irrigated out the right lower quadrant the abdomen and the pelvis with sterile saline solution. Hemostasis on the staple lines was good. I then proceeded to remove all trocar ports under visualization. All port sites were hemostatic. The abdomen then decompressed. I then closed the umbilical trocar port 12 mm fascial defect closed 0 Vicryl suture placed inferior fashion. The skin is another port size with approximately lies in a running subcuticular 4-0 Monocryl suture. Incisions were then cleaned the skin glue was applied. The patient tolerated the procedure well no complications. All sponges, needles, and instrument counts were correct at the end procedure. EBL was _15__cc. The patient was awakened and taken to recovery in stable and satisfactory condition. Implants none Estimated Blood Loss 15 Drains No Packing No Pathology Yes ( appendix to pathology) Complications No immediate complications Condition Stable Disposition PACU [facility] Billing Surgery - Charge Forward: Surgery Billing
[2025-04-26 14:26] LABS: Glucose Point of Care 104 mg/dl (65-105)
[2025-04-26] MEDS: lisinopriL 10 MG TABLET PO (14:35)
[2025-04-26 18:05] LABS: Glucose Point of Care 154 mg/dl (65-105)
[2025-04-27 00:05] LABS: Glucose Point of Care 100 mg/dl (65-105)
[2025-04-27] MEDS: metroNIDAZOLE 500 MG/ISO 100ML 500 MG/100 ML BAG 100 MG IVPB ×2 (01:38→09:17)
[2025-04-27 05:37] LABS: Glucose Point of Care 93 mg/dl (65-105)
[2025-04-27 05:39] VITALS: BP 113/68; PULSE 82; RESP 14; TEMP 36.7; O2SAT 95
[2025-04-27 08:16] LABS: Basophils Percent Auto 0.3 % (0.2-1.2); Eosinophils Absolute Auto 0.1 K/mm3 (0-0.3); Eosinophils Percent Auto 1.3 % (0-4.4); Hematocrit 34.7 % (37.0-47.0); Hemoglobin 10.7 g/dL (12.0-15.0); Immature Granulocyte Absolute 0.04 K/mm3 (0.00-0.031); Immature Granulocyte Percent A 0.4 % (0-0.5); Lymphocytes Absolute Auto 1.06 K/mm3 (0.9-3.2); Lymphocytes Percent Auto 11.4 % (18.3-44.2); Mean Corpuscular HGB Conc 30.8 g/dl (32-36); Mean Corpuscular Hemoglobin 27.1 pg (26-34); Mean Corpuscular Volume 87.8 fl (80-100); Mean Platelet Volume 9.7 fl (7.4-10.4); Monocytes Absolute Auto 0.7 K/mm3 (0.1-0.6); Monocytes Percent Auto 7.3 % (2.6-8.5); Neutrophils Absolute Auto 7.3 K/mm3 (1.3-6.7); Neutrophils Percent Auto 79.3 % (45.5-73.1); Platelet Count Result 245 k/mm3 (150-375); Red Blood Count 3.95 M/mm3 (4.2-5.4); Red Cell Distribution Width 15.4 % (11.5-14.5); White Blood Count 9.3 K/mm3 (4.5-10.0)
[2025-04-27 08:40] LABS: Alanine Aminotransferase 12 U/L (6-35); Albumin Level 3.4 g/dL (3.5-5.1); Alkaline Phosphatase 86 U/L (38-126); Anion Gap 7 mmol/L (4-12); Aspartate Amino Transferase 22 U/L (14-36); Bilirubin,Total 0.3 mg/dL (0.2-1.3); Blood Urea Nitrogen 14 mg/dL (7-17); Calcium 8.7 mg/dL (8.4-10.2); Carbon Dioxide 25 mmol/L (22-30); Chloride 104 mmol/L (98-107); Estimated CRCL calculation 71 ml/min; Estimated Glomerular Filt Rate > 60; Glucose 86 mg/dL (65-110); Potassium 3.6 mmol/L (3.4-5.0); Sodium 136 mmol/L (137-145); Total Protein 6.3 g/dL (6.3-8.2)
--- NOTE | 2025-04-27 09:09 | P.PNGS_ITS ---
Progress Note: A&P Assessment and Plan (1) Appendicitis: Code(s): K37 - Unspecified appendicitis Status: Acute Assessment and Plan: Postop day 1 following laparoscopic appendectomy. Patient is feeling well. T olerating regular diet without nausea or vomiting. She has not needed any pain medications. Okay for discharge from surgical standpoint with outpatient follow-up in [address] Hargrove. (2) Cellulitis of labia: Code(s): N76.2 - Acute vulvitis Status: Acute Assessment and Plan: Manage per hospitalist recommendations. Subjective Subjective Date/Time Seen: 04/27/25 09:09 Post Op day: 1 Patient reports: no new complaints, feels better and pain is less Interval history: Patient is feeling well today. She states the pain is decreased she has not needed any pain medication. WBC has normalized to 9.3. Tolerating regular diet without any nausea or vomiting. No flatus or bowel movement yet. Exam GI: GI Palp: Yes Soft to palpation Other: Incision sites are clean, dry, and intact. No signs of purulence, necrosis, dehiscence. Mild bruising surrounding left upper quadrant incision. No other evidence of infection. Objective Data Vital Signs Vital Signs: Vital Signs - 24 hr 04/26/25 11:49 04/26/25 13:08 04/26/25 13:20 Temperature 98.5 F 97.8 F Pulse Rate 88 93 79 Respiratory Rate 22 H 18 Blood Pressure 120/53 L 113/62 126/77 Pulse Oximetry 100 96 100 Oxygen Delivery Room Air Simple Face Mask Simple Face Mask Oxygen Flow Rate 6 6 04/26/25 13:30 04/26/25 13:35 04/26/25 13:50 Temperature Pulse Rate 80 73 Respiratory Rate 18 18 Blood Pressure 119/74 127/74 Pulse Oximetry 96 92 Oxygen Delivery Room Air Room Air Room Air Oxygen Flow Rate 04/26/25 14:00 04/26/25 20:00 04/26/25 21:05 Temperature 98.5 F 97.5 F L Pulse Rate 78 78 78 Respiratory Rate 18 16 16 Blood Pressure 123/73 103/68 Pulse Oximetry 92 96 96 Oxygen Delivery Room Air Room Air Oxygen Flow Rate 04/26/25 23:20 04/27/25 05:39 Temperature 98.1 F Pulse Rate 82 Respiratory Rate 14 Blood Pressure 113/68 Pulse Oximetry 96 95 Oxygen Delivery Autopap Oxygen Flow Rate Intake/Output Intake/Output: Intake & Output 04/24/25 04/25/25 04/26/25 04/27/25 23:59 23:59 23:59 23:59 Intake Total 2039 Balance 2039 Meds/Results Medications: Active Medications Generic Name Dose Route Start Last Admin Trade Name Freq PRN Reason Stop Dose Admin Acetaminophen 1,000 mg 04/26/25 14:08 Acetaminophen 500 Mg Tablet PO Q6H PRN Mild Pain (1-3) or Fever Hydrocodone Bitart/Acetaminophen 1 tab 04/26/25 14:08 Hydrocodone/Acetaminophen (*Crx) 5-325 Mg Tablet PO Q4H PRN Pain Rated 4-6 Dextrose 12.5 gm 04/26/25 09:22 Dextrose 50% 25 Gm/50 Ml Syringe IV PUSH PRN PRN Hypoglycemia Protocol Glucagon 1 mg 04/26/25 09:22 Glucagon For Inj 1 Mg Vial IM PRN PRN Hypoglycemia Protocol Glucose 15 gm 04/26/25 09:22 Glucose Oral Gel 15 Gm Of Glucse In 37.5 Gm Tube PO PRN PRN Hypoglycemia Protocol Hydromorphone HCl 0.5 mg 04/26/25 05:40 Hydromorphone Hcl Inj (*Crx) 2 Mg/Ml Vial IV PUSH Q4H PRN Pain Rated 7-10 Metronidazole 500 mg in 100 mls @ 100 mls/hr 04/26/25 10:00 04/27/25 02:38 Flagyl 500 Mg/Iso Soln 100 Ml IVPB Infused Q8H VAL Infusion Ceftriaxone Sodium 2 gm in 100 mls @ 200 mls/hr 04/26/25 13:00 04/26/25 12:51 Rocephin 2 Gm/Ns 100 Ml IVPB Infused Q24H VAL Infusion Dextrose 1,000 mls @ 100 mls/hr 04/26/25 09:22 Dextrose 5% 1,000 Ml IVPB PRN PRN Hypoglycemia Protocol Insulin Aspart 2 - 5 units 04/26/25 12:00 04/27/25 06:00 Insulin Aspart (*Bkc) 100 Units/Ml SUB-Q Not Given Q6HR VAL Protocol Lisinopril 10 mg 04/26/25 11:05 04/26/25 14:35 Lisinopril 10 Mg Tablet PO 10 mg DAILY VAL Administration Ondansetron HCl 4 mg 04/26/25 05:40 Ondansetron Inj 4 Mg/2 Ml Vial IV PUSH Q4H PRN Nausea Oxycodone HCl 5 mg 04/26/25 11:45 Oxycodone Hcl (*Crx) 5 Mg Tab Ir PO ONCE PRN Pain Oxycodone HCl 5 mg 04/26/25 14:08 Oxycodone Hcl (*Crx) 5 Mg Tab Ir PO Q4H PRN Pain Rated 7-10 Radiology Results: ITS Impressions Abdomen/Pelvis CT 04/26/25 05:27 Impression: Findings compatible with early acute appendicitis, as detailed above. No abscess or free air. Labs Labs: Laboratory Results - last 24 hr 04/26/25 04/26/25 04/26/25 10:24 14:22 18:02 WBC RBC Hgb Hct MCV MCH MCHC RDW Plt Count MPV Immature Gran % (Auto) Neut % (Auto) Lymph % (Auto) [place] % (Auto) Eos % (Auto) Baso % (Auto) Lymph # (Auto) [place] # (Auto) Eos # (Auto) Baso # (Auto) Abs Immat Gran (auto) Absolute Neuts (auto) Absolute Nucleated RBC Nucleated RBC % PT 13.7 INR 1.1 APTT 29.4 Sodium Potassium Chloride Carbon Dioxide Anion Gap BUN Creatinine Estim Creat Clear Calc Estimated GFR Glucose POC Capillary Glucose 104 154 H Calcium Total Bilirubin AST ALT Alkaline Phosphatase Total Protein Albumin Blood Type O Positive Antibody Screen Negative 04/27/25 04/27/25 04/27/25 00:00 05:31 07:32 WBC 9.3 RBC 3.95 L Hgb 10.7 L Hct 34.7 L MCV 87.8 MCH 27.1 MCHC 30.8 L RDW 15.4 H Plt Count 245 MPV 9.7 Immature Gran % (Auto) 0.4 Neut % (Auto) 79.3 H Lymph % (Auto) 11.4 L [place] % (Auto) 7.3 Eos % (Auto) 1.3 Baso % (Auto) 0.3 Lymph # (Auto) 1.06 [place] # (Auto) 0.7 H Eos # (Auto) 0.1 Baso # (Auto) 0.0 Abs Immat Gran (auto) 0.04 H Absolute Neuts (auto) 7.3 H Absolute Nucleated RBC 0.000 Nucleated RBC % 0.0 PT INR APTT Sodium 136 L Potassium 3.6 Chloride 104 Carbon Dioxide 25 Anion Gap 7 BUN 14 D Creatinine 0.89 Estim Creat Clear Calc 71 Estimated GFR > 60 Glucose 86 POC Capillary Glucose 100 93 Calcium 8.7 Total Bilirubin 0.3 AST 22 ALT 12 Alkaline Phosphatase 86 Total Protein 6.3 Albumin 3.4 L Blood Type Antibody Screen
[2025-04-27] MEDS: lisinopriL 10 MG TABLET PO (09:17)
--- NOTE | 2025-04-27 10:49 | PM.DS ---
DS: Admitting Diagnosis Discharge Date 04/27/2025 Admitting Diagnosis Acute appendicitis DS: Discharge Diagnosis Discharge Diagnosis (1) Appendicitis: Code(s): K37 - Unspecified appendicitis Status: Acute Assessment and Plan: Patient presents with abdominal pain and found to have early appendicitis. She received Rocephin then Zosyn in ED. Her symptoms are much improved. General surgery consulted. Spoke with her briefly about operative vs non-operative management. Resume abx as Rocephin and Flagyl. Monitor for reactions to cephalosporin. General surgery consulted. NPO. Continue IVF. (2) Cellulitis of labia: Code(s): N76.2 - Acute vulvitis Status: Acute Assessment and Plan: Probably related to ingrown hair or bug bite along the underwear that has developed into a mild cellulitis. No fluid collection or need for I&D at this time. Continue abx as above. (3) Hyperglycemia: Code(s): R73.9 - Hyperglycemia, unspecified Status: Acute Assessment and Plan: Glucose 143 on admission. Probably stress response from the infections. Will check A1c and place on sliding scale to monitor glucose levels. Spoke with her about the benefits of starting an exercise program once she has recovered. (4) Essential hypertension: Code(s): I10 - Essential (primary) hypertension Status: Acute Assessment and Plan: BP well controlled probably related to the narcotics and bedrest. Will hold on resuming HCTZ but will resume lisinopril. Monitor BP closely. Plan DVT prophylaxis - SCDs Code status - Full DS: Summary Hospital Course Reason for hospitalization: Acute appendicitis Hospital Course: 54 years old female was admitted for abdominal pain. Patient was found to have acute appendicitis. Patient underwent successful surgery. Today patient is feeling better. Patient discharged home stable condition. Outpatient follow-up scheduled. Status at Discharge Cognitive/behavioral status at discharge: Stable Time Spent with Patient Time attestation: 30 minutes Total time spent providing and/or coordinating discharge services: Exam Narrative: AF 96.9 116/68 95 16 97%ra Gen - well appearing female in no acute respiratory distress who is nontoxic-appearing lying semi recumbent in bed HEENT - normocephalic. Atraumatic. Pupils equal round and reactive. Extraocular motions intact. Sclera clear and anicteric. Nares patent. Oropharynx was clear. No oral lesions. Moist mucous membranes. Tongue was midline. Palate mckenzie symmetrically. No facial asymmetry. Neck - neck was supple. No dominant adenopathy, thyromegaly or masses. 2+ carotid upstrokes without bruits. Chest - lungs are clear to auscultation bilaterally. No wheezes or crackles. Breast exam was deferred. CV - heart was regular rate and rhythm. S1-S2. No murmurs gallops or rubs. Abd - abdomen was soft. Nondistended. Hypoactive bowel sounds. No organomegaly or masses. Tenderness RLQ without guarding. Negative psoas sign. Ext - no clubbing, cyanosis or edema. 2+ DP pulses bilaterally. Neuro - patient is alert and oriented x4. Strength is 5/5 in both upper and lower extremities. Cranial nerves 2-12 are intact. Speech is clear. Psych - normal mood and affect. Patient is pleasant and cooperative. Skin - warm and dry. Small, indurated area right outer labia near the leg fold with mild pink surrounding erythema and minimally tender. DS: Data Data Completed and Pending Pending studies at discharge: Pending at discharge 04/26/25 12:43 Surgical [PTH] Routine Labs on day of discharge: Labs from last 24 hours 04/27/25 04/27/25 04/27/25 07:32 05:31 00:00 WBC 9.3 RBC 3.95 L Hgb 10.7 L Hct 34.7 L MCV 87.8 MCH 27.1 MCHC 30.8 L RDW 15.4 H Plt Count 245 MPV 9.7 Immature Gran % (Auto) 0.4 Neut % (Auto) 79.3 H Lymph % (Auto) 11.4 L [place] % (Auto) 7.3 Eos % (Auto) 1.3 Baso % (Auto) 0.3 Lymph # (Auto) 1.06 [place] # (Auto) 0.7 H Eos # (Auto) 0.1 Baso # (Auto) 0.0 Abs Immat Gran (auto) 0.04 H Absolute Neuts (auto) 7.3 H Absolute Nucleated RBC 0.000 Nucleated RBC % 0.0 PT INR APTT Sodium 136 L Potassium 3.6 Chloride 104 Carbon Dioxide 25 Anion Gap 7 BUN 14 D Creatinine 0.89 Estim Creat Clear Calc 71 Estimated GFR > 60 Glucose 86 POC Capillary Glucose 93 100 Hemoglobin A1c Pending Calcium 8.7 Total Bilirubin 0.3 AST 22 ALT 12 Alkaline Phosphatase 86 Total Protein 6.3 Albumin 3.4 L Blood Type Antibody Screen 04/26/25 04/26/25 04/26/25 18:02 14:22 10:24 WBC RBC Hgb Hct MCV MCH MCHC RDW Plt Count MPV Immature Gran % (Auto) Neut % (Auto) Lymph % (Auto) [place] % (Auto) Eos % (Auto) Baso % (Auto) Lymph # (Auto) [place] # (Auto) Eos # (Auto) Baso # (Auto) Abs Immat Gran (auto) Absolute Neuts (auto) Absolute Nucleated RBC Nucleated RBC % PT 13.7 INR 1.1 APTT 29.4 Sodium Potassium Chloride Carbon Dioxide Anion Gap BUN Creatinine Estim Creat Clear Calc Estimated GFR Glucose POC Capillary Glucose 154 H 104 Hemoglobin A1c Calcium Total Bilirubin AST ALT Alkaline Phosphatase Total Protein Albumin Blood Type O Positive Antibody Screen Negative Discharge Plan Discharge Attending physician on discharge: Vincent Ackerman Consulting providers: Dago Hargrove Discharging Clinician: Vincent Ackerman Patient Disposition: Home Activity: may shower Diet: as tolerated and regular Wound Care Instructions: other - see discharge instructions Discharge Instructions: May discharge home when stable. Follow up with Dr. Hargrove in the office in 2 weeks. Patient to call [phone] for an appointment. May shower in 24hours but do not soak incisions under water for 2 weeks. No lifting more than 10 to 15 lb for 2 weeks. May advance diet as tolerated. No driving for at least 3 days or until no longer taking any narcotic pain medication. Resume all home medications. Prescription for narcotic pain medicines will be sent to the patient's pharmacy if needed. May use Tylenol and/or ibuprofen in addition to or in place of narcotic pain medications for postoperative pain. Patient Instructions: Antibiotic Form Patient Language: Occitan Stand Alone Forms: General Discharge Information Follow-up/Referrals: Dago Hargrove MD [Physician] - (Follow-up to see Dr. Hargrove in the office in 2 weeks. Call [phone] appointment.) Discharge Medications: New hydrocodone-acetaminophen 5-325 mg tablet 1 - 2 tablet PO Q6H PRN (Reason: pain) Qty: 12 0RF Continued lisinopril-hydrochlorothiazide 10-12.5 mg tablet 1 tablet PO DAILY [place] Cmplt Menopause Rlf 4 mg tablet 4 mg PO DAILY cetirizine [All Day Allergy (cetirizine)] 10 mg tablet 10 mg PO DAILY Date of admission: 04/26/25 05:40 Primary Care Provider: Anastacio,Catina Mccrary Admitting Provider: Ted Brown Attending physician on admission: Ted Brown Condition: Stable
[2025-04-27 13:02] LABS: Hemoglobin A1C 5.6 % (<5.7)
== END 2025-04-27 13:40 | disposition home or self-care (01) ==
LOC: ANHED 04-26 05:27 → ANH3MEDSUR 04-26 07:23
PROVIDERS: Emergency Medicine; Internal Medicine; Surgery; Admitting Provider Internal Medicine; Emergency Provider Physician Assistant; PCP Internal Medicine; Visit Provider Internal Medicine
PROC: 0DTJ4ZZ Resection of Appendix, Percutaneous Endoscopic Approach (ICD-10-PCS; CPT 44970; principal; 2025-04-26 12:00)
DX: K35.80 Unspecified acute appendicitis (principal); N76.2 Acute vulvitis; R73.9 Hyperglycemia, unspecified; I10 Essential (primary) hypertension; Z23 Encounter for immunization; Z79.899 Other long term (current) drug therapy; Z88.0 Allergy status to penicillin
CPT/HCPCS: 44970; 36415; 74177; 80053; 81001; 81025; 82948; 83036; 83690; 85025; 85610; 85730; 86850; 86900; 86901; 88304; 90715; 96361; 96365; 96367; 96372; 96375; 99285; A9270; G0378; J0696; J1171; J1836; J1885; J2003; J2004; J2250; J2270; J2405; J2543; J2704; J2765; J3010; J7030; J7120; Q9967